=== PATIENT | female | born 1995 | race Caucasian/White ===

== ENCOUNTER 2021-06-18 21:44 | Emergency (ER) | payer OTHER ==
[~2021-06-18] VITALS: Ht 157.5 cm; Wt 62.5 kg
[2021-06-18 22:51] LABS: RSV AMPLIFICATION NEGATIVE (NEGATIVE)
[2021-06-18 23:37] VITALS: BP 118/66
== END 2021-06-18 23:43 | disposition home or self-care (01) ==
LOC: M ED 21:44
DX: J06.9 Acute upper respiratory infection, unspecified (principal); R05 Cough; R51.9 Headache, unspecified

== ENCOUNTER 2023-04-30 05:44 | Outpatient (CLI) | payer OTHER ==
[~2023-04-30] VITALS: Ht 154.9 cm; Wt 80.0 kg
[2023-04-30] MEDS ORDERED: PRENTAB9 PO ×2 (06:12)
[2023-04-30] MEDS ORDERED: DESL5TAB28 PO (06:12)
[2023-04-30 06:25] VITALS: BP 113/61
[2023-04-30] MEDS ORDERED: HOME MED LIST COMPLETE! XX SCH (07:50)
== END 2023-04-30 09:30 | disposition home or self-care (01) ==
LOC: M LDO 05:44
PROVIDERS: ATTEND Obstetrics & Gynecology
DX: O47.1 False labor at or after 37 completed weeks of gestation (principal); Z3A.39 39 weeks gestation of pregnancy; Z88.6 Allergy status to analgesic agent
CPT/HCPCS: 59025; G0463

== ENCOUNTER 2023-05-01 01:34 | Outpatient (CLI) | payer OTHER ==
[~2023-05-01] VITALS: Ht 154.9 cm; Wt 79.6 kg
[~2023-05-01 01:34] MED LIST: DESL5TAB28 PO; PRENTAB9 PO
[2023-05-01 01:49] VITALS: BP 130/72
[2023-05-01] MEDS ORDERED: HOME MED LIST COMPLETE! XX SCH (02:00)
[2023-05-01] MEDS ORDERED: FLUCONAZOLE 50MG TABLET PO ONE (02:45)
== END 2023-05-01 03:02 | disposition home or self-care (01) ==
LOC: M LDO 01:34
PROVIDERS: ATTEND Obstetrics & Gynecology
DX: O23.593 Infection of other part of genital tract in pregnancy, third trimester (principal); B37.9 Candidiasis, unspecified; Z3A.39 39 weeks gestation of pregnancy
CPT/HCPCS: 59025; 76815; G0463

== ENCOUNTER 2023-05-01 03:59 | Inpatient (IN) | payer OTHER ==
[2023-05-01] VITALS (46 sets, daily range): BP systolic 89–142; BP diastolic 50–89; O2SAT 99–100
[~2023-05-01] VITALS: Ht 154.9 cm; Wt 79.3 kg
[2023-05-01 04:51] LABS: HEMATOCRIT 40.1 % (36.0-47.0); HEMOGLOBIN 13.6 g/dl (12.0-15.5); MEAN CORPUSCULAR HEMOGLOBIN 29.6 pg (27.0-33.0); MEAN CORPUSCULAR HGB CONC 33.9 g/dl (32.0-36.5); MEAN CORPUSCULAR VOLUME 87.4 fl (80.0-96.0); PLATELET COUNT, AUTOMATED 218 10^3/uL (150-450); RED BLOOD COUNT 4.59 10^6/uL (4.00-5.40); WHITE BLOOD COUNT 10.4 10^3/uL (4.0-10.0)
[2023-05-01] MEDS ORDERED: LR 1,000 ML IV SCH (04:55)
[2023-05-01] MEDS ORDERED: LACTATED RINGER'S 1000 ML IV STA (04:55)
[2023-05-01] MEDS ORDERED: LIDOCAINE 1% MDV 20ML VIAL INFIL PRN (04:55)
[2023-05-01] MEDS ORDERED: METHYLERGONOVINE MALEATE 0.2MG/ML 1ML VIAL IM PRN (04:55)
[2023-05-01] MEDS ORDERED: TRANEXAMIC ACID INJection 1,000 MG in NS 100 ML IV PRN (04:55)
[2023-05-01] MEDS ORDERED: OXYTOCIN DRIP 30 UNITS in IV 1 EA IV PRN ×4 (04:55)
[2023-05-01 05:18] LABS: GLUCOSE,RANDOM 84 MG/DL (LESS THAN 200)
[2023-05-01] MEDS ORDERED: ePHEDrine SULFATE 25 MG/5 ML(5MG/ML) SYRINGE IVP PRN (06:10)
[2023-05-01] MEDS ORDERED: diphenhydrAMINE 50MG/ML VIAL IV PRN (06:10)
[2023-05-01] MEDS ORDERED: EPIDURAL/PCA KEYS XX PRN (06:10)
[2023-05-01] MEDS ORDERED: LR 500 ML IV PRN (06:10)
[2023-05-01] MEDS ORDERED: FENTANYL/ROPIVACAINE/NACL BAG 100 ML EPIDURAL SCH (06:10)
[2023-05-01] MEDS ORDERED: NALOXONE INJ 0.4MG/1ML VIAL IV PRN (06:10)
[2023-05-01] MEDS ORDERED: ONDANSETRON 4MG 2ML VIAL IV PRN (06:10)
[2023-05-01] MEDS ORDERED: OXYTOCIN DRIP 30 UNITS in IV 1 EA IV SCH (09:05)
[2023-05-01] MEDS ORDERED: ACETAMINOPHEN 500 MG TAB PO PRN (15:10)
[2023-05-01] MEDS ORDERED: DOCUSATE SODIUM 100MG CAPSULE PO PRN (15:10)
[2023-05-01] MEDS ORDERED: DIBUCAINE 1% OINTMENT 30GM TOP PRN (15:10)
[2023-05-01] MEDS ORDERED: ACETAMINOPHEN TAB 650MG DOSE (2X325MG) PO PRN (15:10)
[2023-05-01] MEDS ORDERED: IBUPROFEN 600MG TAB PO PRN (15:10)
[2023-05-01] MEDS ORDERED: RHOGAM 300MCG (1500IU) INJ IM SCH (15:10)
[2023-05-01] MEDS ORDERED: METHYLERGONOVINE MALEATE 0.2 MG TAB PO PRN (15:10)
[2023-05-01] MEDS: IBUPROFEN 800 MG TAB PO PRN (19:56)
[2023-05-02 06:19] VITALS: BP 113/54; O2SAT 98
[2023-05-02] MEDS: PRENATAL VITAMINS CHEWABLE TABLET PO SCH (07:18)
[2023-05-02] MEDS: IBUPROFEN 800 MG TAB PO PRN (15:10)
[2023-05-02 17:49] VITALS: BP 119/74; O2SAT 98
[2023-05-03] MEDS: IBUPROFEN 800 MG TAB PO PRN ×2 (00:52→13:07)
[2023-05-03 06:00] VITALS: BP 110/58
[2023-05-03] MEDS ORDERED: MEASLES,MUMPS,RUBELLA VACCINE INJ (MMR-II) SC.IMMUN ONE (09:00)
[2023-05-03] MEDS: PRENATAL VITAMINS CHEWABLE TABLET PO SCH (09:09)
== END 2023-05-03 14:00 | disposition home or self-care (01) | DRG 807 ==
LOC: M LDO 03:59 → M LDI 04:20 → M OBS 16:36
PROVIDERS: ADMIT Obstetrics & Gynecology; ATTEND Obstetrics & Gynecology
PROC: 10E0XZZ Delivery of Products of Conception, External Approach (ICD-10-PCS; principal; 2023-05-01)
PROC: 0HQ9XZZ Repair Perineum Skin, External Approach (ICD-10-PCS; 2023-05-01)
DX: O76 Abnormality in fetal heart rate and rhythm complicating labor and delivery (principal); Z37.0 Single live birth; Z3A.39 39 weeks gestation of pregnancy; O70.0 First degree perineal laceration during delivery; O69.1XX0 Labor and delivery complicated by cord around neck, with compression, not applicable or unspecified; O77.0 Labor and delivery complicated by meconium in amniotic fluid